=== PATIENT | female | born 1975 | race Caucasian/White ===

== ENCOUNTER 2016-06-25 11:56 | Emergency (ER) | payer MEDICAID, OTHER ==
[~2016-06-25] VITALS: Ht 177.8 cm; Wt 52.2 kg
[~2016-06-25 11:56] MED LIST: CLON1TAB PO; CLON2TAB PO
[2016-06-25 12:00] VITALS: BP 130/80; PULSE 88; RESP 16; TEMP 99.4; O2SAT 97
[2016-06-25] MEDS ORDERED: CLON1TAB PO (12:11)
[2016-06-25] MEDS ORDERED: SODIUM CHLOR 0.9% 1000 ML INJ 1,000 ML IV SCH (12:17)
[2016-06-25] MEDS ORDERED: SODIUM CHLORIDE 0.9% FLUSH 5 ML FLUSH IVF PRN (12:30)
[2016-06-25] MEDS ORDERED: diphenhydrAMINE HCL 50 MG/ML VIAL IV PUSH ONE (12:30)
[2016-06-25] MEDS ORDERED: PROCHLORPERAZINE INJ 10 MG/2 ML VIAL IVS ONE (12:30)
[2016-06-25] MEDS ORDERED: DICYCLOMINE HCL 20 MG/2 ML VIAL IM ONE (12:30)
--- NOTE | 2016-06-25 12:30 | PD ---
HPI . Abdominal pain and diarrhea Chief Complaint: GI Complaint Time Seen by Provider: 12:16 Travel History International Travel<30 days: No Contact w/Intl Traveler<30days: No Traveled to known affect area: No History of Present Illness HPI This patient presents with abdominal pain and diarrhea which started yesterday. She reports 7 loose stools. Since she saw some blood in stool shortly prior to presentation. She denies associated fever. She admits to nausea but denies vomiting. She denies urinary tract symptoms. She states that she has been making adequate urine. PFSH Past Medical History Anxiety: Yes Fibromyalgia: Yes Genitourinary: Yes (OVERACTIVE BLADDER) Medical other: Yes (IBS) Tetanus Vaccination: > 5 Years Influenza Vaccination: No ?: Not Past Surgical History Hysterectomy: Yes Other Surgery: Yes (TAIL BONE CYST REMOVAL) Social History Alcohol Use: Yes (occ) Tobacco Use: Yes (1 ppd) Substance Use: No Allergies-Medications (Allergen,Severity, Reaction): Coded Allergies: Penicillin (Verified Allergy, Severe, Hives, 06/25/16) Codeine (Verified Adverse Reaction, Severe, N/V, 06/25/16) Trazodone (Verified Adverse Reaction, Severe, Palpitations, 06/25/16) Reported Meds & Prescriptions Reported Meds & Active Scripts Active Reported Clonazepam 1 Mg Tab 1 Mg PO DAILY Review of Systems Except as stated in HPI: all other systems reviewed are Neg General / Constitutional: No: Fever, Chills Gastrointestinal: Positive: Nausea, Diarrhea, Abdominal Pain, No: Vomiting Genitourinary: No: Urgency, Frequency, Dysuria, Decreased Urinary Output Neurologic: No: Weakness, Dizziness Physical Exam Narrative GENERAL: Awake and alert and in no acute distress. SKIN: Warm and dry. HEAD: Atraumatic. Normocephalic. EYES: Pupils equal and round. ENT: No nasal bleeding or discharge. Mucous membranes pink and moist. NECK: Trachea midline. Neck is supple. CARDIOVASCULAR: Regular rate and rhythm. Heart sounds are normal. RESPIRATORY: No accessory muscle use. Lungs are clear with full air movement throughout. GASTROINTESTINAL: Abdomen soft, non-tender, nondistended. MUSCULOSKELETAL: No obvious deformities. No edema. NEUROLOGICAL: Awake and alert. No obvious cranial nerve deficits. Motor grossly within normal limits. Normal speech. PSYCHIATRIC: Appropriate mood and affect; insight and judgment normal. Data Data Last Documented VS Vital Signs Date Time Temp Pulse Resp B/P Pulse Ox O2 Delivery O2 Flow Rate FiO2 06/25/16 12:00 99.4 88 16 130/80 97 Orders Complete Blood Count With Diff (06/25/16 12:17) Comprehensive Metabolic Panel (06/25/16 12:17) Lipase (06/25/16 12:17) Urinalysis - C+S If Indicated (06/25/16 12:17) Iv Access Insert/Monitor (06/25/16 12:17) Sodium Chlor 0.9% 1000 Ml Inj (Ns 1000 M (06/25/16 12:17) Sodium Chloride 0.9% Flush (Ns Flush) (06/25/16 12:30) Dicyclomine Inj (Bentyl Inj) (06/25/16 12:30) Ed Urine Pregnancytest Poc (06/25/16 12:17) Prochlorperazine Inj (Compazine Inj) (06/25/16 12:30) Diphenhydramine Inj (Benadryl Inj) (06/25/16 12:30) Labs Laboratory Tests Test 06/25/16 12:40 White Blood Count 6.6 TH/MM3 Red Blood Count 4.35 MIL/MM3 Hemoglobin 14.3 GM/DL Hematocrit 41.1 % Mean Corpuscular Volume 94.5 FL Mean Corpuscular Hemoglobin 32.9 PG Mean Corpuscular Hemoglobin 34.8 % Concent Red Cell Distribution Width 12.0 % Platelet Count 190 TH/MM3 Mean Platelet Volume 8.3 FL Neutrophils (%) (Auto) 71.1 % Lymphocytes (%) (Auto) 23.3 % Monocytes (%) (Auto) 4.2 % Eosinophils (%) (Auto) 0.7 % Basophils (%) (Auto) 0.7 % Neutrophils # (Auto) 4.8 TH/MM3 Lymphocytes # (Auto) 1.5 TH/MM3 Monocytes # (Auto) 0.3 TH/MM3 Eosinophils # (Auto) 0.0 TH/MM3 Basophils # (Auto) 0.0 TH/MM3 CBC Comment DIFF FINAL Differential Comment Urine Collection Type CLEAN CATCH Urine Color YELLOW Urine Turbidity CLEAR Urine pH 6.5 Urine Specific [place] 1.010 Urine Protein NEG mg/dL Urine Glucose (UA) NEG mg/dL Urine Ketones NEG mg/dL Urine Occult Blood NEG Urine Nitrite NEG Urine Bilirubin NEG Urine Leukocyte Esterase NEG Urine WBC 0-2 /hpf Urine Squamous Epithelial 0-5 /hpf Cells Urine Amorphous Sediment FEW Microscopic Urinalysis Comment CULT NOT INDICATED Urine Collection Time 12:40 Sodium Level 144 MEQ/L Potassium Level 3.8 MEQ/L Chloride Level 108 MEQ/L Carbon Dioxide Level 30.3 MEQ/L Anion Gap 6 MEQ/L Blood Urea Nitrogen 12 MG/DL Creatinine 0.67 MG/DL Estimat Glomerular Filtration 96 ML/MIN Rate Random Glucose 101 MG/DL Calcium Level 8.8 MG/DL Total Bilirubin 0.3 MG/DL Aspartate Amino Transf 9 U/L (AST/SGOT) Alanine Aminotransferase 19 U/L (ALT/SGPT) Alkaline Phosphatase 73 U/L Total Protein 6.9 GM/DL Albumin 4.3 GM/DL Lipase 147 U/L [facility] Medical Decision Making Medical Screen Exam Complete: Yes Emergency Medical Condition: Yes Differential Diagnosis Differential diagnosis of diarrhea includes but is not limited to early enteritis, bacterial enteritis, antibiotic induced diarrhea, irritable bowel syndrome Narrative Course Patient presents complaining with abdominal cramping and diarrhea. CBC & BMP Diagram 06/25/16 12:40 UA is negative. LFTs are negative. Diagnosis Primary Impression: Abdominal pain Qualified Code: R10.84 - Generalized abdominal pain Additional Impression: Diarrhea Qualified Code: R19.7 - Diarrhea, unspecified type Patient Instructions: Acute Diarrhea (ED), General Instructions Disposition: 01 DISCHARGE HOME Condition: Stable Jessica Keller MD Jun 25, 2016 12:30
[2016-06-25 12:50] LABS: BLOOD, URINE NEG (NEG); GLUCOSE,URINE NEG (NEG); KETONE, URINE NEG (NEG); NITRITE,URINE NEG (NEG); PH, URINE 6.5 (5.0-8.5)
[2016-06-25 13:00] LABS: CHLORIDE 108 MEQ/L (98-107); POTASSIUM 3.8 MEQ/L (3.5-5.1); SODIUM (NA) 144 MEQ/L (136-145)
[2016-06-25 13:04] LABS: ANION GAP 6 MEQ/L (5-15); BICARBONATE 30.3 MEQ/L (21.0-32.0); BLOOD UREA NITROGEN 12 MG/DL (7-18)
[2016-06-25 13:06] LABS: COMMENT (UR) CULT NOT INDICATED; CULTURE IF INDICATED CULT NOT INDICATED; METHOD OF COLLECTION CLEAN CATCH; SQUAMOUS EPITHELIAL CELL URINE 0-5 /hpf (0-5); URINE COLOR YELLOW (YELLW/STRAW); WBC, URINE 0-2 /hpf (0-5)
[2016-06-25 13:07] LABS: ALT (GPT) 19 U/L (10-53); AST (GOT) 9 U/L (15-37); GLOMERULAR FILTRATION RATE 96 ML/MIN (>89)
[2016-06-25 13:08] LABS: TOTAL BILIRUBIN ADULT 0.3 MG/DL (0.2-1.0)
[2016-06-25 13:10] LABS: ALKALINE PHOSPHATASE 73 U/L (45-117)
[2016-06-25 13:44] LABS: AUTOMATED NEUTROPHIL # 4.8 TH/MM3 (1.8-7.7); BASOPHIL % 0.7 % (0.0-2.0); EOSINOPHIL % 0.7 % (0.0-4.0); HEMATOCRIT 41.1 % (35.0-46.0); HEMO FLAGS DIFF FINAL; LYMPH % 23.3 % (9.0-44.0); LYMPHOCYTE # 1.5 TH/MM3 (1.0-4.8); MEAN CELL VOLUME 94.5 FL (80.0-100.0); MEAN CORPUSCULAR HEMOGLOBIN 32.9 PG (27.0-34.0); MEAN CORPUSCULAR HGB CONC 34.8 % (32.0-36.0); MONO % 4.2 % (0.0-8.0); NEUT % 71.1 % (16.0-70.0); PLATELET COUNT 190 TH/MM3 (150-450); RED BLOOD COUNT 4.35 MIL/MM3 (4.00-5.30); WHITE BLOOD COUNT 6.6 TH/MM3 (4.0-11.0)
[2016-06-25 14:00] VITALS: BP 114/58; PULSE 89; RESP 14; O2SAT 100
== END 2016-06-25 14:08 | disposition home or self-care (01) ==
LOC: PHED 11:56
DX: R10.84 Generalized abdominal pain (principal); R19.7 Diarrhea, unspecified; K92.1 Melena; F17.210 Nicotine dependence, cigarettes, uncomplicated
CPT/HCPCS: 80053; 81001; 83690; 84703; 85025; 96361; 96372; 96374; 96375; 99284; J0500; J0780; J1200; J7030

== ENCOUNTER 2016-10-03 01:36 | Emergency (ER) | payer OTHER ==
[2016-10-03] VITALS (7 sets, daily range): BP systolic 123–156; BP diastolic 59–99; PULSE 56–70; RESP 16–18; TEMP 98; O2SAT 96–100
[~2016-10-03] VITALS: Ht 177.8 cm; Wt 50.9 kg
[~2016-10-03 01:36] MED LIST changes: -CLON2TAB PO
[2016-10-03] MEDS ORDERED: SODIUM CHLOR 0.9% 1000 ML INJ 1,000 ML IV SCH (01:58)
[2016-10-03] MEDS ORDERED: ONDANSETRON HCL 4 MG/2 ML VIAL IVP ONE (02:00)
[2016-10-03] MEDS ORDERED: HYDROmorphone HCL PF 1 MG/ML VIAL IV PUSH ONE ×2 (02:00→03:45)
--- NOTE | 2016-10-03 02:07 | PD ---
HPI Chief Complaint: Abdominal Pain Time Seen by Provider: 01:58 Travel History International Travel<30 days: No Contact w/Intl Traveler<30days: No Traveled to known affect area: No History of Present Illness HPI 41 year-old female presents to the emergency department complaint of 2 days of right lower quadrant abdominal pain. Patient reports she is status post appendectomy and total vaginal hysterectomy with bilateral salpingo- oophorectomy. Patient states pain does radiate from the back to the front. No prior history of kidney stones. No dysuria frequency urgency or hematuria. No reported vaginal discharge. Patient has had multiple episodes of vomiting. No hematemesis or coffee-ground emesis. No fever or chills. Patient's had no diarrhea. Patient reports 3-4 days ago she had a fall while chasing's [place] onto the ground and landed on her knee but did not land on her abdomen and had no abdominal pain associated with the fall. Patient denies other injury. Patient does take clonazepam for anxiety. Patient admits to tobacco use alcohol use; denies substance use. [facility] Past Medical History Narrative Medical Anxiety fibromyalgia tobacco use alcohol use nursing notes reviewed PE/DVT; kylie filter; nursing notes reviewed Anxiety: Yes Fibromyalgia: Yes Genitourinary: Yes (OVERACTIVE BLADDER) ?: Not Past Surgical History Hysterectomy: Yes Other Surgery: Yes (TAIL BONE CYST REMOVAL) Social History Alcohol Use: Yes (occ) Tobacco Use: Yes (1 ppd) Substance Use: No Allergies-Medications (Allergen,Severity, Reaction): Coded Allergies: Penicillin (Verified Allergy, Severe, Hives, 10/03/16) Codeine (Verified Adverse Reaction, Severe, N/V, 10/03/16) Trazodone (Verified Adverse Reaction, Severe, Palpitations, 10/03/16) Reported Meds & Prescriptions Reported Meds & Active Scripts Active Phenergan Supp (Promethazine HCl) 25 Mg Supp 25 Mg RECTAL Q6H PRN Zofran Odt (Ondansetron Odt) 4 Mg Tab 4 Mg SL Q6HR PRN Reported Multivitamins (Multiple Vitamin) 1 Cap Cap Unisom (Diphenhydramine HCl) 50 Mg/30 Ml Liquid Clonazepam 1 Mg Tab 1 Mg PO DAILY Review of Systems Except as stated in HPI: all other systems reviewed are Neg General / Constitutional: No: Fever, Chills HENT: No: Congestion Cardiovascular: No: Chest Pain or Discomfort Respiratory: No: Shortness of Breath Gastrointestinal: Positive: Nausea, Vomiting, Abdominal Pain, No: Diarrhea Genitourinary: Positive: Flank Pain, No: Dysuria, Hematuria Musculoskeletal: Positive: Myalgias, Arthralgias Skin: No Rash Neurologic: No: Weakness Psychiatric: Positive: Anxiety Hematologic/Lymphatic: No: Lymph Node Enlargement Physical Exam Narrative GENERAL: Well-developed well-nourished ill-appearing female in no acute respiratory distress SKIN: Warm and dry. HEAD: Normocephalic. EYES: No scleral icterus. No injection or drainage. NECK: Supple, trachea midline. No JVD or lymphadenopathy. CARDIOVASCULAR: Regular rate and rhythm without murmurs, gallops, or rubs. RESPIRATORY: Breath sounds equal bilaterally. No accessory muscle use. GASTROINTESTINAL: Abdomen soft, non-tender, nondistended. MUSCULOSKELETAL: No cyanosis, or edema. Bilateral lower extremities without any edema or deformity some mild discomfort to the right groin area with range of motion of the right hip but no point tenderness and no soft tissue swelling or decreased range of motion. Bilateral radial and dorsalis pedis pulses 2+ to palpation. BACK: Nontender without obvious deformity. No CVA tenderness. Data Data Last Documented VS Vital Signs Date Time Temp Pulse Resp B/P Pulse Ox O2 Delivery O2 Flow Rate FiO2 10/03/16 06:10 62 16 123/82 98 Room Air 10/03/16 03:50 98.0 Orders Complete Blood Count With Diff (10/03/16 01:58) Comprehensive Metabolic Panel (10/03/16 01:58) Lipase (10/03/16 01:58) Urinalysis - C+S If Indicated (10/03/16 01:58) Iv Access Insert/Monitor (10/03/16 01:58) Ecg Monitoring (10/03/16 01:58) Oximetry (10/03/16 01:58) Ondansetron Inj (Zofran Inj) (10/03/16 02:00) Sodium Chlor 0.9% 1000 Ml Inj (Ns 1000 M (10/03/16 01:58) Hydromorphone Pf Inj (Dilaudid Pf Inj) (10/03/16 02:00) Ondansetron Inj (Zofran Inj) (10/03/16 03:00) Ct Abd/Pel W Iv Contrast(Rout) (10/03/16 ) Hydromorphone Pf Inj (Dilaudid Pf Inj) (10/03/16 03:45) Metoclopramide Inj (Reglan Inj) (10/03/16 03:45) Iohexol 350 Inj (Omnipaque 350 Inj) (10/03/16 04:34) Promethazine Supp (Phenergan Supp) (10/03/16 06:00) Labs Laboratory Tests Test 10/03/16 10/03/16 02:00 03:20 White Blood Count 13.8 TH/MM3 Red Blood Count 4.66 MIL/MM3 Hemoglobin 15.1 GM/DL Hematocrit 43.6 % Mean Corpuscular Volume 93.6 FL Mean Corpuscular Hemoglobin 32.4 PG Mean Corpuscular Hemoglobin 34.6 % Concent Red Cell Distribution Width 11.9 % Platelet Count 241 TH/MM3 Mean Platelet Volume 8.4 FL Neutrophils (%) (Auto) 83.4 % Lymphocytes (%) (Auto) 11.5 % Monocytes (%) (Auto) 3.8 % Eosinophils (%) (Auto) 1.1 % Basophils (%) (Auto) 0.2 % Neutrophils # (Auto) 11.5 TH/MM3 Lymphocytes # (Auto) 1.6 TH/MM3 Monocytes # (Auto) 0.5 TH/MM3 Eosinophils # (Auto) 0.2 TH/MM3 Basophils # (Auto) 0.0 TH/MM3 CBC Comment DIFF FINAL Differential Comment Sodium Level 142 MEQ/L Potassium Level 3.5 MEQ/L Chloride Level 107 MEQ/L Carbon Dioxide Level 26.9 MEQ/L Anion Gap 8 MEQ/L Blood Urea Nitrogen 11 MG/DL Creatinine 0.62 MG/DL Estimat Glomerular Filtration 105 ML/MIN Rate Random Glucose 126 MG/DL Calcium Level 9.4 MG/DL Total Bilirubin 0.4 MG/DL Aspartate Amino Transf 17 U/L (AST/SGOT) Alanine Aminotransferase 23 U/L (ALT/SGPT) Alkaline Phosphatase 74 U/L Total Protein 7.3 GM/DL Albumin 4.4 GM/DL Lipase 109 U/L Urine Color YELLOW Urine Turbidity MOD Urine pH 6.5 Urine Specific [place] 1.014 Urine Protein NEG mg/dL Urine Glucose (UA) NEG mg/dL Urine Ketones TRACE mg/dL Urine Occult Blood NEG Urine Nitrite NEG Urine Bilirubin NEG Urine Leukocyte Esterase NEG Urine RBC 0-3 /hpf Urine Squamous Epithelial 0-5 /hpf Cells Urine Amorphous Sediment LARGE Urine Fine Granular Casts 3-5 /lpf Urine Coarse Granular Casts 3-5 /lpf Urine Waxy Casts /lpf Urine Mucus FEW /lpf Microscopic Urinalysis Comment CULT NOT INDICATED MDM Medical Decision Making Medical Screen Exam Complete: Yes Emergency Medical Condition: Yes Medical Record Reviewed: Yes Interpretation(s) Last Impressions Abdomen/Pelvis CT 10/03/16 0000 Signed Impressions: Service Date/Time: Monday, October 03, 2016 04:13 - CONCLUSION: Left lower lobe nodule, noncontrast chest CT is suggested in 6 months as a conservative follow up. Dami Camacho MD CBC & BMP Diagram 10/03/16 02:00 Vital Signs Date Time Temp Pulse Resp B/P Pulse Ox O2 Delivery O2 Flow Rate FiO2 10/03/16 06:10 62 16 123/82 98 Room Air 10/03/16 06:00 16 10/03/16 05:20 66 16 145/88 97 Room Air 10/03/16 04:20 16 10/03/16 04:15 59 16 154/80 97 Room Air 10/03/16 03:50 98.0 60 16 156/83 99 Room Air 10/03/16 03:00 16 10/03/16 02:50 56 18 131/59 100 Room Air 10/03/16 02:20 66 16 124/93 99 Room Air 10/03/16 02:20 18 100 Room Air 10/03/16 02:02 18 10/03/16 01:47 98.0 70 18 146/99 96 Differential Diagnosis Vomiting, abdominal pain, gastroenteritis, renal colic, UTI, bowel obstruction Narrative Course Patient placed on monitor IV access obtained specimens collected and sent for resulting patient administered IV fluids antiemetic and pain medication Patient resting comfortably continues to complain of pain additional pain medication administered an additional antepyretic Patient with ongoing nausea without vomiting additional into the medic administered CT abdomen and pelvis reveals no acute abnormality Patient informed of lab results imaging results in a stable for outpatient management. Patient is able to tolerate oral hydration in the emergency department stable for follow-up with primary care provider as an outpatient. Diagnosis Primary Impression: Abdominal pain Additional Impressions: Groin strain Vomiting Referrals: Primary Care Physician call for appointment Patient Instructions: General Instructions, Narcotic given in the ED Additional Instructions: Follow clear liquid diet for next 12-24 hours advance as tolerated bland/Randolph diet then regular diet as tolerated Take medication as prescribed as needed for nausea and/or vomiting Increase fluid hydration May take acetaminophen or ibuprofen per package instructions as needed for musculoskeletal pain or for fever 100.4F or greater Return to the emergency department for any concerns or change in condition Follow up with her primary care provider Med/Other Pt SpecificInfo: Prescription(s) given Scripts Promethazine Supp (Phenergan Supp)25 Mg Supp25 Mg RECTAL Q6H PRN (NAUSEA OR VOMITING) #7 SUPP Ref 0 Prov:Rin Maurer MD 10/03/16 Ondansetron Odt (Zofran Odt)4 Mg Tab4 Mg SL Q6HR PRN (Nausea/Vomiting) #10 TAB Ref 0 Prov:Rin Maurer MD 10/03/16 Rin Maurer MD Oct 03, 2016 02:06
[2016-10-03] MEDS ORDERED: MULTCAP3 (02:10)
[2016-10-03] MEDS ORDERED: DIPH50LI13 (02:10)
[2016-10-03 02:49] LABS: AUTOMATED NEUTROPHIL # 11.5 TH/MM3 (1.8-7.7); BASOPHIL % 0.2 % (0.0-2.0); CHLORIDE 107 MEQ/L (98-107); EOSINOPHIL # 0.2 TH/MM3 (0-0.4); EOSINOPHIL % 1.1 % (0.0-4.0); HEMATOCRIT 43.6 % (35.0-46.0); HEMO FLAGS DIFF FINAL; LYMPH % 11.5 % (9.0-44.0); LYMPHOCYTE # 1.6 TH/MM3 (1.0-4.8); MEAN CELL VOLUME 93.6 FL (80.0-100.0); MEAN CORPUSCULAR HEMOGLOBIN 32.4 PG (27.0-34.0); MEAN CORPUSCULAR HGB CONC 34.6 % (32.0-36.0); MONO % 3.8 % (0.0-8.0); NEUT % 83.4 % (16.0-70.0); PLATELET COUNT 241 TH/MM3 (150-450); POTASSIUM 3.5 MEQ/L (3.5-5.1); RED BLOOD COUNT 4.66 MIL/MM3 (4.00-5.30); RED CELL DISTRIBUTION WIDTH 11.9 % (11.6-17.2); SODIUM (NA) 142 MEQ/L (136-145); WHITE BLOOD COUNT 13.8 TH/MM3 (4.0-11.0)
[2016-10-03 02:53] LABS: ANION GAP 8 MEQ/L (5-15); BICARBONATE 26.9 MEQ/L (21.0-32.0); BLOOD UREA NITROGEN 11 MG/DL (7-18)
[2016-10-03 02:56] LABS: ALT (GPT) 23 U/L (10-53); AST (GOT) 17 U/L (15-37); GLOMERULAR FILTRATION RATE 105 ML/MIN (>89)
[2016-10-03 02:58] LABS: TOTAL BILIRUBIN ADULT 0.4 MG/DL (0.2-1.0)
[2016-10-03 02:59] LABS: ALKALINE PHOSPHATASE 74 U/L (45-117)
[2016-10-03] MEDS ORDERED: ONDANSETRON HCL 4 MG/2 ML VIAL IV PUSH ONE (03:00)
[2016-10-03] MEDS ORDERED: METOCLOPRAMIDE HCL 10 MG/2 ML VIAL IV PUSH ONE (03:45)
[2016-10-03 04:10] LABS: BLOOD, URINE NEG (NEG); GLUCOSE,URINE NEG (NEG); KETONE, URINE TRACE mg/dL (NEG); NITRITE,URINE NEG (NEG); PH, URINE 6.5 (5.0-8.5)
[2016-10-03 04:17] LABS: URINE COLOR YELLOW (YELLW/STRAW)
[2016-10-03 04:18] LABS: MUCUS URINE FEW /lpf (OCC); RBC, URINE 0-3 /hpf (0-3); SQUAMOUS EPITHELIAL CELL URINE 0-5 /hpf (0-5)
[2016-10-03 04:21] LABS: COMMENT (UR) CULT NOT INDICATED; CULTURE IF INDICATED CULT NOT INDICATED
[2016-10-03] MEDS ORDERED: IOHEXOL 350 MG/ML 10 ML VIAL (for RAD DIAG) IV ONE (04:34)
--- NOTE | 2016-10-03 04:44 | RADHPO ---
EXAM DATE/TIME: 10/03/2016 04:13 [facility] COMPARISON: No previous studies available for comparison. INDICATIONS : Right lower quadrant pain. IV CONTRAST: 85 cc Omnipaque 350 (iohexol) IV Injection Site: Lt Forearm Lot: [id number] Exp Date: Jun 2019 Lot: Exp Date: ORAL CONTRAST: No oral contrast ingested. RADIATION DOSE: 4.79 CTDIvol (mGy) MEDICAL HISTORY : None SURGICAL HISTORY : Appendectomy. Hysterectomy. section.IVC Filter. ENCOUNTER: Initial ACUITY: 2 days PAIN SCALE: 10/10 LOCATION: Right lower quadrant TECHNIQUE: Volumetric scanning of the abdomen and pelvis was performed. Using automated exposure control and ad justment of the mA and/or kV according to patient size, radiation dose was kept as low as reasonably achievable to obtain optimal diagnostic quality images. FINDINGS: CT Abdomen: The liver, spleen, pancreas, right kidney adrenals are unremarkable. There is no evidence for any appreciable pathological adenopathy, free fluid, or bowel obstruction. There is a small 6 m m nodule left lower lobe with slight atelectasis and/or scarring adjacent to it. Almost 1 cm simple c yst is present in the left hepatic lobe and there are simple cysts in the left kidney the largest luan sures 1.2 cm in size. IVC filter is in place. CT pelvis: There is no evidence for mass, abscess formation, or any significant adenopathy within the pelvis. There is moderate amount of stool throughout the colon. CONCLUSION: Left lower lobe nodule, noncontrast chest CT is suggested in 6 months as a conservati ve follow up. Dami Camacho MD on October 03, 2016 at 4:38 Board Certified Radiologist. This report was verified electronically.
[2016-10-03] MEDS ORDERED: PROMETHAZINE HCL 25 MG SUPP RECTAL ONE (06:00)
[2016-10-03] MEDS ORDERED: ZOFR4TAB3 SL (07:39)
[2016-10-03] MEDS ORDERED: PROM1SUP7 RECTAL (07:39)
== END 2016-10-03 07:50 | disposition home or self-care (01) ==
LOC: PHED 01:36
DX: R10.31 Right lower quadrant pain (principal); S39.011A Strain of muscle, fascia and tendon of abdomen, initial encounter; R11.10 Vomiting, unspecified; W19.XXXA Unspecified fall, initial encounter; Y93.02 Activity, running
CPT/HCPCS: 74177; 80053; 81001; 83690; 85025; 96361; 96374; 96375; 96376; 99285; J1170; J2405; J2765; J7030; Q9967